=== PATIENT | male | born 1990 | race Caucasian/White ===

== ENCOUNTER 2023-12-27 09:10 | Emergency (ER) | payer OTHER ==
[~2023-12-27] VITALS: Ht 195.6 cm; Wt 61.7 kg
[2023-12-27 09:43] VITALS: BP 116/81; PULSE 99; RESP 18; TEMP 98.7; O2SAT 99
[2023-12-27] MEDS ORDERED: AZIT-81 PO (10:27)
[2023-12-27] MEDS ORDERED: PROM1SOL4 PO (10:27)
== END 2023-12-27 10:42 | disposition home or self-care (01) ==
LOC: ER 09:10
DX: J02.9 Acute pharyngitis, unspecified (principal); J20.9 Acute bronchitis, unspecified; J45.909 Unspecified asthma, uncomplicated
CPT/HCPCS: 71045

== ENCOUNTER 2023-12-30 09:19 | Emergency (ER) | payer OTHER ==
[~2023-12-30] VITALS: Ht 195.6 cm; Wt 62.1 kg
[~2023-12-30 09:19] MED LIST: AZIT-81 PO; PROM1SOL4 PO
[2023-12-30 09:51] VITALS: BP 138/84; PULSE 69; RESP 18; TEMP 98.4; O2SAT 95
== END 2023-12-30 11:04 | disposition home or self-care (01) ==
LOC: ER 09:19
DX: J20.9 Acute bronchitis, unspecified (principal); J45.909 Unspecified asthma, uncomplicated
CPT/HCPCS: 71046